=== PATIENT | female | born 1995 | race Caucasian/White ===

== ENCOUNTER 2016-09-13 18:44 | Emergency (ER) | payer OTHER ==
[2016-09-13 18:40] LABS: INFLUENZA A NEG (NEG); INFLUENZA B NEG (NEG)
[~2016-09-13 18:44] MED LIST: AMOXICILLIN875 MG PO; BACTRIM 400-801 TA1; BENTYL20 MG PO; FLAGYL PO; FLEXERIL10 MG PO; NAPROSYN500 MG PO; NO MEDICATIONS; PHENERGAN25 M1 PO
== END 2016-09-13 19:32 | disposition home or self-care (01) ==
LOC: SED 18:44
PROVIDERS: Physician Assistant
DX: J06.9 Acute upper respiratory infection, unspecified (principal); Z87.891 Personal history of nicotine dependence
CPT/HCPCS: 87651; 87804; 99282

== ENCOUNTER 2016-10-18 18:38 | Emergency (ER) | payer OTHER ==
[2016-10-18 18:22] LABS: URINE SOURCE CLEAN CATCH
[2016-10-18 18:24] LABS: MICRO INDICATED? NO; URINE APPEARANCE CLEAR; URINE BILIRUBIN NEG (NEG); URINE BLOOD NEG (NEG); URINE COLOR YELLOW; URINE GLUCOSE NEG (NORM); URINE KETONE NEG (NEG); URINE LEUKOCYTE ESTERASE NEG (NEG); URINE NITRATE NEG (NEG); URINE PH 6.5 (5-8); URINE PROTEIN NEG (NEG); URINE UROBILINOGEN 0.2 MG/DL (NORM)
[2016-10-21 12:09] LABS: CHLAMYDIA TRACH Not Detected (Not Detected); N GONOR Not Detected (Not Detected)
== END 2016-10-18 20:15 | disposition home or self-care (01) ==
LOC: SED 18:38
PROVIDERS: Nurse Practitioner
DX: M54.5 Low back pain (principal); I10 Essential (primary) hypertension; J45.909 Unspecified asthma, uncomplicated
CPT/HCPCS: 81003; 87210; 87491; 87591; 87808; 87905; 99284

== ENCOUNTER 2016-12-17 09:42 | Emergency (ER) | payer OTHER ==
[2016-12-17 10:14] LABS: URINE SOURCE CLEAN CATCH
[2016-12-17 10:15] LABS: URINE APPEARANCE SL CLOUDY; URINE BILIRUBIN NEG (NEG); URINE BLOOD TRACE-INTACT (NEG); URINE COLOR YELLOW; URINE GLUCOSE NEG (NORM); URINE KETONE NEG (NEG); URINE LEUKOCYTE ESTERASE 2+ (NEG); URINE NITRATE NEG (NEG); URINE PROTEIN TRACE (NEG); URINE SPECIFIC GRAVITY >=1.030 (1.003-1.035)
[2016-12-17 10:22] LABS: MICRO INDICATED? YES
[2016-12-17 10:23] LABS: URINE RBC 25-50 /[HPF] (0-2); URINE WBC INNUM /[HPF] (0-5)
[2016-12-17 10:24] LABS: CULTURE INDICATED? YES; URINE BACTERIA 2+ (NEG); URINE SQUAMOUS EPITHELIAL CELL FEW /[HPF]; URINE TRANSITIONAL EPI CELLS OCCAS /[HPF]; URINE TRICHOMONAS PRESENT
[2016-12-17 10:25] LABS: URINE AMORPHOUS SEDIMENT AMORP URATES
[2016-12-20 08:16] LABS: CHLAMYDIA TRACH Not Detected (Not Detected); N GONOR Not Detected (Not Detected)
== END 2016-12-17 11:14 | disposition home or self-care (01) ==
LOC: SED 09:42
PROVIDERS: Emergency Medicine
DX: A59.01 Trichomonal vulvovaginitis (principal); N30.00 Acute cystitis without hematuria; J45.909 Unspecified asthma, uncomplicated
CPT/HCPCS: 81003; 84703; 87086; 87491; 87591; 96372; 99283; J0696